=== PATIENT | male | born 1995 | race Caucasian/White ===

== ENCOUNTER 2021-02-26 13:08 | Emergency (ER) | payer SELFPAY ==
--- NOTE | 2021-02-26 13:22 | EDM.PDOC ---
ED HPI GENERAL MEDICAL PROBLEM - General Stated Complaint: FALL Time Seen by Provider: 02/26/21 13:12 Source of Information: Reports: Patient History Limitations: Reports: No Limitations - History of Present Illness INITIAL COMMENTS - FREE TEXT/NARRATIVE: HISTORY AND PHYSICAL: History of present illness: Patient is a 26-year-old male who presents to the emergency room by EMS for medical evaluation. Patient was climbing a 40 foot electrical pole and did have all his safety gear/harness on appropriately. He states his foot slipped and he fell approximately 6 feet resulting in him hanging in the air by his harness. Bystanders state that he may have had seizure-like activity for 1 to 2 minutes. Patient denies any previous history of seizures. Believes he may have hit his head during the fall with a LOC, he is unsure. Upon arrival the patient is alert, oriented and answering questions appropriately. He states he did not want to be transported to the emergency room by EMS, stating that he was "forced to". He currently has no complaints or concerns. Was not incontinent of urine or stool. Moves all extremities per self. Patient denies any fever, chills, headache, change in vision, syncope or near syncope. Denies any chest pain, back pain, shortness of breath or cough. Denies any abdominal pain, nausea, vomiting, diarrhea, constipation or dysuria. Has not noted any blood in urine or stool. Patient has been eating and drinking appropriately. Denies any alcohol or drug abuse. Review of systems: As per history of present illness and below otherwise all systems reviewed and negative. Past medical history: As per history of present illness and as reviewed below otherwise noncontributory. Surgical history: As per history of present illness and as reviewed below otherwise noncontributory. Social history: See social history for further information Family history: As per history of present illness and as reviewed below otherwise noncontributory. Physical exam: General: Well developed and well nourished 26-year-old male. Alert and orientated x 3. Nontoxic in appearance and in no acute distress. Vital signs are stable and have been reviewed by me. Nursing notes were reviewed. HEENT: Nontender to palpation, no crepitus or obvious injury is noted. Normocephalic, pupils equal and reactive bilaterally, negative for conjunctival pallor or scleral icterus, mucous membranes moist, small superifical bite to tip of tongue (not actively bleeding), TMs normal bilaterally, throat clear, neck supple, nontender, trachea midline. No drooling or trismus noted. No meningeal signs. No hot potato voice noted. Lungs: Clear to auscultation bilaterally. No wheezes, rales, or rhonchi. Chest nontender. Normal work of breathing, no accessory muscles used. Heart: S1S2, regular rate and rhythm without overt murmur, gallops, or rubs. No JVD. No peripheral edema Abdomen: Soft, nondistended, nontender. Normoactive bowel sounds. Negative for masses or costovertebral tenderness. Pelvis: Stable nontender. C-spine/Back: No pinpoint vertebral tenderness upon palpation. No crepitus, step-offs or obvious deformities. Patient is ambulatory into the emergency room without difficulty or deficit. Able to rock back on heels and walk on toes. Denies any urinary or fecal incontinence. Denies any numbness, tingling or saddle paresthesia. No concerns of serious infection, fracture or cord compression, or cauda equina syndrome. Deep tendon reflexes brisk bilaterally. Skin: Intact, warm, dry. No lesions or rashes noted. Hematologic: No petechiae or purpra. Mucosa appropriate color and normal nail bed color and refill. Extremities: Moves all extremities per self without difficulty or deficits, negative for cords or calf pain. Neurovascular unremarkable. Neuro: Awake, alert, oriented. Cranial nerves II through XII unremarkable. Cerebellum unremarkable. Motor and sensory unremarkable throughout. Exam nonfocal. Psychiatric: Mood and affect are appropriate. Normal thought process. Answering questions appropriately. Notes: *This patient was seen and evaluated during the 2019 SARS-CoV-2 novel coronavirus pandemic period. Community viral transmission is ongoing at time of this encounter and the emergency department is operating under pandemic response procedures. Upon arrival of the patient he has a c-collar on. My full physical examination shows he is within normal limits. He has no pain or tenderness to head, trunk or extremities. He is requesting the c-collar be removed, has no cervical spine tenderness with palpation.GCS: 15, NIH: 0. No neurological deficits are noted. As we are discussing doing diagnostics, he is adamant about leaving AGAINST MEDICAL ADVICE. He is aware without any diagnostics he is not able to be medically cleared for safety or cleared to return to work. He is aware and continues to decline any further evaluation. Again, he is alert, orientated and answering questions appropriately - able to make this decision. He is aware of risks of leaving without further evaluation. Signs and symptoms that would prompt him to return to the emergency room were reviewed and discussed along with appropriate follow-up. Signs out AMA. Diagnostics: Declines Therapeutics: Declines Impression: Fall Left AGAINST MEDICAL ADVICE Definitive disposition and diagnosis as appropriate pending reevaluation and review of above. ED ROS GENERAL - Review of Systems Review Of Systems: Comprehensive ROS is negative, except as noted in HPI. ED EXAM, GENERAL - Physical Exam Exam: See Below (See dictation) Departure - Departure Time of Disposition: 13:23 Disposition: Against Medical Advice 07 Clinical Impression: Left against medical advice Fall Qualifiers: Encounter type: initial encounter Qualified Code(s): W19.XXXA - Unspecified fall, initial encounter - Discharge Information
== END 2021-02-26 13:17 | disposition left against medical advice (07) ==
LOC: MW.ED 13:08
DX: S01.552A Open bite of oral cavity, initial encounter (principal); W17.89XA Other fall from one level to another, initial encounter
CPT/HCPCS: 99283

== ENCOUNTER 2021-02-26 13:56 | Emergency (ER) | payer SELFPAY ==
--- NOTE | 2021-02-26 15:09 | CT ---
INDICATION: Trauma TECHNIQUE: CT head without contrast. COMPARISON: None FINDINGS: CSF spaces: Within normal limits for age. Brain parenchyma: The browning-white differentiation is normal. No sign of mass, hemorrhage, or midline shift. Skull base and calvarium: Mild ethmoid sinus mucosal thickening. The visualized orbits are grossly unremarkable. No skull fractures. IMPRESSION: Unremarkable noncontrast head CT. Please note that all CT scans at this facility use dose modulation, iterative reconstruction, and/or weight-based dosing when appropriate to reduce radiation dose to as low as reasonably achievable. Dictated by Brent Acosta MD @ 02/26/2021 3:07:[address] Brent Acosta @ Feb 26 2021 3:07PM
--- NOTE | 2021-02-26 15:19 | CT ---
INDICATION: Trauma TECHNIQUE: CT cervical spine without contrast. COMPARISON: None FINDINGS: Vertebral alignment: Alignment is normal. Vertebrae: There are no fractures or suspicious bony lesions. Discs and facet joints: Disc spaces and facets are within normal limits. Extraspinal findings: Prevertebral soft tissues, visualized airway, and visualized lungs are unremarkable. IMPRESSION: Unremarkable cervical spine CT. Please note that all CT scans at this facility use dose modulation, iterative reconstruction, and/or weight-based dosing when appropriate to reduce radiation dose to as low as reasonably achievable. Dictated by Brent Acosta MD @ 02/26/2021 3:18:[address] Brent Acosta @ Feb 26 2021 3:18PM
[2021-02-26 15:37] LABS: BLOOD UREA NITROGEN,BUN 19 mg/dL (7.0-18.0); CARBON DIOXIDE,CO2 24.6 mmol/L (21.0-32.0); CHLORIDE,CL 104 mmol/L (98-107); GLUCOSE RANDOM 91 mg/dL (74-106); SODIUM,NA 142 mmol/L (136-148)
--- NOTE | 2021-02-26 15:51 | EDM.PDOC ---
ED HPI GENERAL MEDICAL PROBLEM - General Chief Complaint: General Stated Complaint: FALL Time Seen by Provider: 02/26/21 13:58 - History of Present Illness INITIAL COMMENTS - FREE TEXT/NARRATIVE: CHIEF COMPLAINT(S): Head injury HISTORY OF PRESENT ILLNESS: This is a 26-year-old man without any past medical history who comes to the emergency department with a chief complaint of head injury. The patient was initially brought in by EMS for evaluation however the patient elected to not check and having medical screening examination. He is rechecked and at the request of his employer. The patient states that he was on a 40 foot electrical pole while wearing full gear and harness. He states that his foot slipped off and he fell hitting his head and causing him to have loss of consciousness. According to EMS and prior evaluation he had some type of seizure-like activity for 1 to 2 minutes but was not postictal after. He denied any neck pain, numbness, tingling, weakness, bowel incontinence, urinary incontinence, abdominal pain, nausea or vomiting. He denies any chest pain or shortness of breath. He states that this was just a misstep. He states that he is currently not experiencing any pain. He denies any blurry vision, diplopia or loss of vision. He denies any illicit substance use. REVIEW OF SYSTEMS: Constitutional: Denies fever, chills. Eyes: Denies eye pain Ears, Nose, Mouth, & Throat: Denies earache Cardiovascular: Denies chest pain Respiratory: Denies shortness of breath Gastrointestinal: Denies bowel incontinence, nausea, vomiting, diarrhea, hematochezia. Genitourinary: Denies urinary incontinence, hematuria Skin:Denies a rash MSK: Denies joint pain Neurological: Positive for head injury denies blurred vision, numbness, tingling, weakness Psychiatric: Denies depression PAST MEDICAL HISTORY: As per history of present illness and as reviewed below otherwise noncontributory. SURGICAL HISTORY: As per history of present illness and as reviewed below otherwise noncontributory. SOCIAL HISTORY: As per history of present illness and as reviewed below otherwise noncontributory. FAMILY HISTORY: As per history of present illness and as reviewed below otherwise noncontributory. EXAMINATION OF ORGAN SYSTEMS/BODY AREAS: Constitutional: Blood pressure is 129/76, heart rate 92, respiratory rate 16 with an oxygen saturation 98% on room air. Temperature 35.9 General: Overall well-appearing man who is in no acute distress Psychiatric: Appropriate mood and affect. Eyes: No scleral icterus or conjunctival erythema pupils are equal round reactive to light. Extraocular movements intact. No vertical horizontal nystagmus. ENMT: Moist mucous membranes. No pharyngeal erythema no blood in the oropharynx. No missing or chipped teeth. Cardiovascular: Regular, rate, and rhythm. No gallops, murmurs, or rubs. Bilateral upper extremity pulses symmetric and intact. No peripheral edema. No JVD. Respiratory: Lungs clear to auscultation bilaterally. No wheezes, rales, or rhonchi. Gastrointestinal: Soft, non-tender, non-distended. Normoactive bowel sounds no rebound or guarding. Genitourinary: No suprapubic tenderness Musculoskeletal: Normal range of motion. No cervical, thoracic, or lumbar midline spinal tenderness. Skin: No lesions or abrasions. Neurological: AOx4. CN grossly intact. Strength 5/5 in bilateral upper and lower extremity. Sensation is intact bilaterally in upper and lower extremity. Gait appears normal. Finger to nose, heel to alcantara, rapid alternating movements intact. MEDICAL DECISION MAKING AND COURSE IN THE ED WITH INTERPRETATION/REVIEW OF FABY GNOSTIC STUDIES: This is a 26-year-old man without any significant past medical history who comes to the emergency department with head injury with loss of consciousness and reported seizure-like activity in a patient who does not have a history of seizure disorder. At this time the patient has stable vital signs we will obtain CT head and CT cervical spine. Obtain screening labs including CBC, lactic acid, CMP. Patient is 90 pain therefore no pain medication will be administered. Laboratory: CBC is unremarkable. Lactic acid is normal. CMP is unremarkable except for mild elevation in BUN at 19. The radiological images were viewed by myself along with reading the report from the radiologist. CT head without contrast does not reveal any acute intracranial abnormality. CT cervical spine without contrast does not reveal any fracture or subluxation. On reevaluation the patient continued to remain stable. At this time I do not believe the patient had a seizure and this was likely because of his loss of consciousness from his head injury. I did discuss concussion and precautions. He was provided with strict return precautions. He is to follow-up with his primary care physician. He was amenable to discharge at this time and had no further questions. DISPOSITION: The patient was discharged home in stable condition. The patient will follow up with primary care physician within 1 week CONDITION: Fair PROCEDURES: None FINAL IMPRESSION(S)/DIAGNOSES: 1. Acute closed head injury with loss of consciousness Venkata Dawkins M.D. - Related Data Allergies Allergy/AdvReac Type Severity Reaction Status Date / Time No Known Allergies Allergy Verified 02/26/21 14:11 Home Meds: Home Meds . [No Known Home Meds] 02/26/21 [History] Past Medical History - Past Health History Medical/Surgical History: Denies Medical/Surgical History Social & Family History - Family History Family Medical History: No Pertinent Family History - Tobacco Use Tobacco Use Status *Q: Current Every Day Tobacco User Years of Tobacco use: 5 Packs/Tins Daily: 1 - Caffeine Use Caffeine Use: Reports: Coffee - Recreational Drug Use Recreational Drug Use: No ED ROS GENERAL - Review of Systems Review Of Systems: See Below ED EXAM, GENERAL - Physical Exam Exam: See Below Course - Vital Signs Last Recorded V/S: Last Vital Signs Temp 35.9 C L 02/26/21 14:06 Pulse 77 02/26/21 16:04 Resp 16 02/26/21 16:04 BP 116/54 L 02/26/21 16:04 Pulse Ox 96 02/26/21 16:04 - Orders/Labs/Meds Labs: Laboratory Tests 02/26/21 02/26/21 02/26/21 Range/Units 14:22 14:22 14:22 WBC 8.58 (4.0-11.0) K/uL RBC 5.00 (4.50-5.90) M/uL Hgb 15.5 (13.0-17.0) g/dL Hct 44.1 (38.0-50.0) % MCV 88.2 (80.0-98.0) fL MCH 31.0 (27.0-32.0) pg MCHC 35.1 (31.0-37.0) g/dL RDW Std Deviation 39.2 (28.0-62.0) fl RDW Coeff of [place] 12 (11.0-15.0) % Plt Count 238 (150-400) K/uL MPV 10.60 (7.40-12.00) fL Neut % (Auto) 79.6 (48.0-80.0) % Lymph % (Auto) 6.6 L (16.0-40.0) % [place] % (Auto) 12.8 (0.0-15.0) % Eos % (Auto) 0.9 (0.0-7.0) % Baso % (Auto) 0.1 (0.0-1.5) % Neut # (Auto) 6.8 H (1.4-5.7) K/uL Lymph # (Auto) 0.6 (0.6-2.4) K/uL [place] # (Auto) 1.1 H (0.0-0.8) K/uL Eos # (Auto) 0.1 (0.0-0.7) K/uL Baso # (Auto) 0.0 (0.0-0.1) K/uL Nucleated RBC % 0.0 /100WBC Nucleated RBCs # 0 K/uL Lactate 1.7 (0.20-2.00) mmol/L Sodium 142 (136-148) mmol/L Potassium 4.0 (3.5-5.1) mmol/L Chloride 104 (98-107) mmol/L Carbon Dioxide 24.6 (21.0-32.0) mmol/L BUN 19 H (7.0-18.0) mg/dL Creatinine 1.1 (0.8-1.3) mg/dL Est Cr Clr Drug Dosing TNP Estimated GFR (MDRD) > 60.0 ml/min Glucose 91 (74-106) mg/dL Calcium 9.0 (8.5-10.1) mg/dL Total Bilirubin 0.6 (0.2-1.0) mg/dL AST 32 (15-37) IU/L ALT 41 (14-63) IU/L Alkaline Phosphatase 77 (46-116) U/L Total Protein 7.3 (6.4-8.2) g/dL Albumin 4.1 (3.4-5.0) g/dL Globulin 3.2 (2.6-4.0) g/dL Albumin/Globulin Ratio 1.3 (0.9-1.6) Departure - Departure Time of Disposition: 15:47 Disposition: Home, Self-Care 01 Condition: Fair Clinical Impression: Closed head injury - Discharge Information *PRESCRIPTION DRUG MONITORING PROGRAM REVIEWED*: No *COPY OF PRESCRIPTION DRUG MONITORING REPORT IN PATIENT ISAIAS: No Instructions: Head Injury, Adult, [id number] Referrals: PCP,None [Primary Care Provider] - Forms: ED Department Discharge Additional Instructions: You evaluate today on an emergent basis. At this time your work-up was negative. At this time I do believe you have experienced a concussion. At this time we do recommend refraining from cell phone usage, watching television, reading. We also recommend rest. I would like you to follow-up with your primary care physician within 2 to 3 days for further evaluation and monitoring. If you have any worsening symptoms such as headache, vomiting that you can stop, or weakness in one of your extremities please return to the emergency department. You may use Tylenol and Motrin for pain relief. Please use: Tylenol 500-1000mg every 6 hours (DO NOT TAKE MORE THAN 4000mg in 1 day) Ibuprofen 400mg every 6 hours (Take with food as it can cause ulcers, GI upset) Example schedule: 8:00 AM (Tylenol 500-1000mg) 11:00 AM (Ibuprofen 400mg) 2:00 PM (Tylenol 500-1000mg) 5:00 PM (Ibuprofen 400mg) [facility] [address] [place] [address] [place] [address] The patient is informed of any results of their evaluation and diagnostic workup and all questions are answered. They are given discharge instructions and return precautions. The patient is stable for discharge. The patient states they understand and agree with the plan and that they will return if their symptoms get worse or if they have any new concerns. The following information is given to patients seen in the emergency department who are being discharged to home. This information is to outline your options for follow-up care. We provide all patients seen in our emergency department with a follow-up referral. The need for follow-up, as well as the timing and circumstances, are variable depending upon the specifics of your emergency department visit. If you don't have a primary care physician on staff, we will provide you with a referral. We always advise you to contact your personal physician following an emergency department visit to inform them of the circumstance of the visit and for follow-up with them and/or the need for any referrals to a consulting specialist. The emergency department will also refer you to a specialist when appropriate. This referral assures that you have the opportunity for follow-up care with a specialist. All of these measure are taken in an effort to provide you with optimal care, which includes your follow-up. Under all circumstances we always encourage you to contact your private physician who remains a resource for coordinating your care. When calling for follow-up care, please make the office aware that this follow-up is from your recent emergency room visit. If for any reason you are refused follow-up, please contact the [facility] Emergency Department at and asked to speak to the emergency department charge nurse. Sepsis Event Note (ED) - Evaluation Sepsis Screening Result: No Definite Risk
== END 2021-02-26 16:04 | disposition home or self-care (01) ==
LOC: MW.ED 13:56
DX: S06.9X9A Unspecified intracranial injury with loss of consciousness of unspecified duration, initial encounter (principal); Z72.0 Tobacco use; W17.89XA Other fall from one level to another, initial encounter
CPT/HCPCS: 36415; 70450; 70450-26; 72125; 72125-26; 80053; 83605; 85025; 99284-25